=== PATIENT | male | born 1945 | race Caucasian/White ===

== ENCOUNTER 2023-03-30 09:22 | Outpatient (CLI) | payer MEDICARE | END 2023-03-30 09:23 | disposition home or self-care (01) | LOC: RAD 09:22 | PROVIDERS: ATTEND Internal Medicine Critical Care Medicine | DX: R06.00 Dyspnea, unspecified (principal) | CPT/HCPCS: 36415; 71046; 80048; 81001 ==

== ENCOUNTER 2023-10-13 10:44 | Outpatient (CLI) | payer MEDICARE | END 2023-10-13 10:45 | disposition home or self-care (01) | LOC: RAD 10:44 | PROVIDERS: ATTEND Internal Medicine Critical Care Medicine | DX: R06.00 Dyspnea, unspecified (principal) | CPT/HCPCS: 71046 ==

== ENCOUNTER 2024-05-31 09:31 | Outpatient (CLI) | payer MEDICARE | END 2024-05-31 09:32 | disposition home or self-care (01) | LOC: RAD 09:31 | PROVIDERS: ATTEND Internal Medicine Critical Care Medicine | DX: R06.00 Dyspnea, unspecified (principal); I70.0 Atherosclerosis of aorta; J98.4 Other disorders of lung; R91.8 Other nonspecific abnormal finding of lung field; M47.814 Spondylosis without myelopathy or radiculopathy, thoracic region; M51.34 Other intervertebral disc degeneration, thoracic region; M25.78 Osteophyte, vertebrae | CPT/HCPCS: 71046 ==